=== PATIENT | male | born 1940 | race African-American/Black ===

== ENCOUNTER 2019-05-14 17:07 | Inpatient (IN) | payer OTHER, MEDICAID ==
[~2019-05-14] VITALS: Ht 175.3 cm; Wt 83.9 kg
[2019-05-14 17:07] VITALS: BP_SYST 137
--- NOTE | 2019-05-14 17:07 | NUR ---
BROUGHT IN BY [facility]LS [facility]ANCE AND PLACED IN HALLWAY FOR TRIAGE. AWAITING HOSPITAL BED. ALL VSS. PT DENIES PAIN OR DISCOMFORT
[2019-05-14] MEDS ORDERED: NACL 0.9% 1,000 ML IV ONE (17:15)
--- NOTE | 2019-05-14 17:45 | NUR ---
MOVED TO ROOM #4 FOR CLOSER MONITORING. REPORT GIVEN TO BRIANNA
[2019-05-14 17:51] LABS: BASOPHILS % (AUTO) 0.4 % (0.0-2.0); EOSINOPHILS % (AUTO) 0.2 % (0.0-4.0); HEMATOCRIT 38.2 % (36-54); HEMOGLOBIN 12.8 g/dL (14.0-18.0); LYMPHOCYTES # (AUTO) 1.6 K/uL (1.0-5.5); LYMPHOCYTES % (AUTO) 26.9 % (20.5-51.5); MEAN CORPUSCULAR HEMOGLOBIN 33 pg (27-31); MEAN CORPUSCULAR HGB CONC 34 % (32-36); MEAN CORPUSCULAR VOLUME 98 fL (79.0-98.0); MONOCYTES # (AUTO) 0.6 K/uL (0.0-1.0); MONOCYTES % (AUTO) 10.4 % (1.7-9.3); NEUTROPHILS # (AUTO) 3.6 K/uL (1.8-7.7); NEUTROPHILS % (AUTO) 62.1 % (40.0-70.0); PLATELET COUNT (AUTO) 215 K/uL (130-430); RED BLOOD CELL COUNT(AUTO) 3.92 MIL/uL (4.2-6.2); RED CELL DISTRIBUTION WIDTH 13.7 % (9.0-15.0); WHITE BLOOD COUNT (AUTO) 5.8 K/uL (4.8-10.8)
--- NOTE | 2019-05-14 18:00 | NUR ---
PT HAS NO ACUTE DISTRESS NOTED AT THIS TIME.
[2019-05-14 18:08] LABS: PROTHROMBIN TIME 10.4 SECS (9.5-12.5)
[2019-05-14 18:10] LABS: ANION GAP 1 (5-15); CALCIUM 8.5 mg/dL (8.4-11.0); CHLORIDE 108 mmol/L (98-107); CREATININE 0.77 mg/dL (0.55-1.30); GLUCOSE 92 mg/dL (70-99); POTASSIUM 4.1 mmol/L (3.5-5.1); SODIUM SERUM 142 mmol/L (136-145); UREA NITROGEN, BLOOD 15 mg/dL (8-21)
--- NOTE | 2019-05-14 18:15 | NUR ---
PT PROVIDE URINE SPECIMEN.
[2019-05-14 18:17] LABS: ALANINE AMINOTRANSFERASE 25 U/L (12-78); ALBUMIN 3.2 g/dL (3.4-4.8); ASPARTATE AMINOTRANSFERASE 22 U/L (10-37); TOTAL BILIRUBIN 0.3 mg/dL (0.0-1.0)
--- NOTE | 2019-05-14 18:30 | NUR ---
# 20 gauge angiocath placed to LFA. Use of asceptic technique. Opsite placed over site. Blood return noted. Flushed with 10 cc of normal saline. No evidence of infiltration noted. Patient tolerated well.
--- NOTE | 2019-05-14 19:00 | NUR ---
Patient will be admitted to care of DR. BAILEY. Admitted to TELEMETRY unit. Will go to room 121A. Summary report printed. Report will be given at bedside.
--- NOTE | 2019-05-14 19:30 | NUR ---
Recieved Pt from jason RN. Pt stable, but confused. IVF infusing, IV site C/D/I. Orders to transfer to Telemetry in. Pt to be transferred.
--- NOTE | 2019-05-14 19:56 | NUR ---
ADMISSION: The patient, MILI RIVAS, 79 y/o, M admitted by CURTIS BAILEY MD, to room 121 A , with the diagnosis of EPISODES OF HYPOTENSION ,was given written information regarding hospital policies, unit procedures and contact persons.
[2019-05-14 20:06] LABS: BILIRUBIN,URINE NEGATIVE (NEGATIVE); BLOOD, URINE NEGATIVE (NEGATIVE); CLARITY/URINE CLEAR (CLEAR); COLOR,URINE YELLOW (YELLOW); GLUCOSE,URINE NEGATIVE (NEGATIVE); KETONES,URINE NEGATIVE (NEGATIVE); LEUKOCYTE ESTERASE ,URINE NEGATIVE (NEGATIVE); NITRITE, URINE NEGATIVE (NEGATIVE); PROTEIN URINE NEGATIVE (NEGATIVE); UROBILINOGEN,URINE 0.2 (0.2-1.0)
[2019-05-14 20:34] VITALS: BP_SYST 149
--- NOTE | 2019-05-14 20:34 | NUR ---
Initial RN notes Pt AAOx2, VSS, afebrile. SR on the monitor. Pt oriented to name and only and thinks he is in [facility] Cust[facility]. Pt is R. eye blind. IVF NS infusing L. AC 20 no s/s infiltration. Oriented pt to surrounding. Call light within reach. Bed low, locked, siderails up, bed alarm on. Belonging list down. To monitor.
--- NOTE | 2019-05-14 21:55 | NUR ---
MRSA nares collected and sent to lab.
[2019-05-14] MEDS ORDERED: PRO40 PO (23:05)
[2019-05-14] MEDS ORDERED: MOM PO (23:05)
[2019-05-14] MEDS ORDERED: SER100 PO (23:05)
[2019-05-14] MEDS ORDERED: DICL75TA5 PO (23:05)
[2019-05-14] MEDS ORDERED: DICL50TA9 PO (23:05)
[2019-05-14] MEDS ORDERED: ACET325T53 PO (23:05)
[2019-05-14] MEDS ORDERED: BISA10SU61 RC (23:05)
[2019-05-14] MEDS ORDERED: MEMA10TA21 PO (23:05)
[2019-05-14] MEDS ORDERED: FLEETMO RC (23:05)
[2019-05-14] MEDS ORDERED: MULT1CAP34 (23:05)
--- NOTE | 2019-05-14 23:30 | NUR ---
Agitated Pt confused and getting agitated, pulled out IV. TRAVEL COUNSELOR at bedside. Paged Dr. Vasquez. Awaiting callback.
--- NOTE | 2019-05-14 23:43 | NUR ---
called back Received Dr. Vasquez callback and order received for Ativan 1mg PO as needed. Will carry out.
[2019-05-14] MEDS ORDERED: LORazepam 1 MG TABLET PO PRN (23:45)
--- NOTE | 2019-05-15 00:04 | NUR ---
Ativan Pt agitated, pulled off IV catheter and monitor. Ativan 1mg PO given as needed, crushed with pudding. Pt allowed this nurse to check his vitals, VSS. But pt refused to have monitor on. Fall precaution in place. Will continue to monitor pt.
[2019-05-15 00:10] VITALS: BP_SYST 135
--- NOTE | 2019-05-15 02:05 | NUR ---
Rounds Pt asleep. No s/s distress noted. Tele box on. Safety measures maintained. Pt placed near nursing station to be monitored closely.
--- NOTE | 2019-05-15 04:15 | NUR ---
Rounds Pt awake, agitated on and off trying to get out of bed and taking off tele box. Call light within reach. Bed low, locked, siderails up, alarm on. Will continue to monitor closely.
--- NOTE | 2019-05-15 04:38 | NUR ---
CONSULT Called [facility] exchange for morning consult [phone] Spoke to [employer] Addendum: 05/15/19 at 7081 by Rola Dumont AR/ [phone] Spoke to Christianne @ [phone]
--- NOTE | 2019-05-15 04:43 | NUR ---
CONSULT Called Dr. Jain's exchange [phone] Spoke to [employer]
--- NOTE | 2019-05-15 06:54 | NUR ---
Nutrition Update Bipin Scale 16 noted. Pt admitted for Episode of Hypotension Diet: 2gm Na BMI: 27.3 kg/m2 RD to follow per nutrition care standards.
--- NOTE | 2019-05-15 07:00 | NUR ---
Closing notes/IV re-start Pt asleep, no s/s agitation at this time. IV restarted R. FA 22G good blood return. Pt tolerated well. Safety maintained. Bed low, locked, siderails up, bed alarm on. All needs met throughout the night. To endorse to AM nurse.
[2019-05-15 07:47] LABS: BASOPHILS % (AUTO) 0.4 % (0.0-2.0); EOSINOPHILS % (AUTO) 0.2 % (0.0-4.0); HEMATOCRIT 37.2 % (36-54); HEMOGLOBIN 12.4 g/dL (14.0-18.0); LYMPHOCYTES # (AUTO) 1.6 K/uL (1.0-5.5); LYMPHOCYTES % (AUTO) 23.2 % (20.5-51.5); MEAN CORPUSCULAR HEMOGLOBIN 33 pg (27-31); MEAN CORPUSCULAR HGB CONC 33 % (32-36); MEAN CORPUSCULAR VOLUME 98 fL (79.0-98.0); MONOCYTES # (AUTO) 0.8 K/uL (0.0-1.0); MONOCYTES % (AUTO) 12.2 % (1.7-9.3); NEUTROPHILS # (AUTO) 4.4 K/uL (1.8-7.7); PLATELET COUNT (AUTO) 217 K/uL (130-430); RED BLOOD CELL COUNT(AUTO) 3.81 MIL/uL (4.2-6.2); RED CELL DISTRIBUTION WIDTH 13.4 % (9.0-15.0); WHITE BLOOD COUNT (AUTO) 6.8 K/uL (4.8-10.8)
--- NOTE | 2019-05-15 07:50 | NUR ---
OPENING NOTE PATIENT AWAKE IN BED. A/OX2. CONFUSED. NO S/SX PAIN NOTED. ROOM AIR. NO ACUTE DISTRESS. NO SOB. RESPIRATION EVEN AND UNLABORED. SKIN WARM AND DRY TO TOUCH. IV TO RFA INTACT AND PATENT, SL; NO REDNESS/INFILTRATION NOTED. ALL NEEDS MET. REPOSITIONED FOR BREAKFAST. BED IN LOW AND LOCKED POSITION. SIDERAIL UPX3. BED ALARM ON. CALL LIGHT IN REACH. ROOM NEAR NURSES STATION.
[2019-05-15 08:00] VITALS: BP_SYST 118
[2019-05-15 08:09] LABS: ALANINE AMINOTRANSFERASE 24 U/L (12-78); ANION GAP 5 (5-15); ASPARTATE AMINOTRANSFERASE 24 U/L (10-37); CALCIUM 8.4 mg/dL (8.4-11.0); CHLORIDE 107 mmol/L (98-107); CREATININE 0.72 mg/dL (0.55-1.30); GLUCOSE 81 mg/dL (70-99); SODIUM SERUM 143 mmol/L (136-145); THYROID STIMULATING HORMONE 3.04 uIu/mL (0.36-3.74); TOTAL BILIRUBIN 0.4 mg/dL (0.0-1.0); UREA NITROGEN, BLOOD 13 mg/dL (8-21)
[2019-05-15 08:23] LABS: CHOLESTEROL 149 mg/dL (<200); HDL CHOLESTEROL 58 mg/dL (>45); LDL CHOLESTEROL 86 mg/dL (<100); TRIGLYCERIDES 33 mg/dL (30-150)
--- NOTE | 2019-05-15 09:55 | NUR ---
NOTE ASSISTED PATIENT TO BATHROOM WITH SLOW GAIT. VOIDED WITH NO DIFFICULTY. ALL NEEDS MET. CONT TO MONITOR
--- NOTE | 2019-05-15 11:00 | NUR ---
NOTE PATIENT REQUESTED FOR COFFEE. ALL NEEDS MET. CONT TO MONITOR. CALL LIGHT IN REACH
[2019-05-15 12:00] VITALS: BP_SYST 130
--- NOTE | 2019-05-15 12:54 | NUR ---
NOTE PATIENT ATE 100% LUNCH WITH NO DIFFICULTY. NOW RESTING IN BED WATCHING TV. ALL NEEDS MET. CONT TO MONITOR
--- NOTE | 2019-05-15 13:20 | NUR ---
SEEN AND EXAMINED BY AT BEDSIDE. MD WANTS TO KEEP PATIENT ON TELE. PATIENT RESTING IN BED AT THIS TIME. NO S/SX PAIN. CONT TO MONITOR
--- NOTE | 2019-05-15 14:20 | NUR ---
NOTE PATIENT IS BEING NONCOMPLIANT. PATIENT ATTEMPTED TO REMOVE TELE BOX THEN PULLED OUT IV LINE TO RFA. GAUZE AND PRESSURE APPLIED TO SITE. NO BLEEDING AT THIS TIME. REORIENTED PATIENT AND EXPLAINED TO PATIENT PURPOSE OF IV. ALL NEEDS MET. CONT TO MONITOR WILL ATTEMPT TO REINSERT IV WHEN PATIENT ALLOWS
--- NOTE | 2019-05-15 15:23 | NUR ---
SEEN AND EXAMINED BY AT BEDSIDE. PATIENT CONTINUES TO REFUSE IV INSERT. PATIENT STATES THAT HE "DONT NEED IT AND DONT WANT IT". RISKS EXPLAINED AND PATIENT CONTINUE TO REFUSE
--- NOTE | 2019-05-15 15:58 | NUR ---
2D ECHO PATIENT REFUSED 2D ECHO. ATTEMPTED WITH TECH TO EXPLAIN PROCEDURE. PATIENT CONTINUE TO REFUSE. TECH WILL ATTEMPT AGAIN TOMORROW Addendum: 05/15/19 at 1601 by Kathryn Fuentes RN PATIENT CONTINUES TO BE NONCOMPLIANT AND REMOVING TELE BOX. CONT TO EXPLAIN TO PATIENT RISK/BENEFITS AND PATIENT REFUSE TO PUT BACK ON. PATIENT ALSO CONT TO REFUSE IV INSERT AT THIS TIME
[2019-05-15 16:00] VITALS: BP_SYST 124
--- NOTE | 2019-05-15 16:29 | NUR ---
EKG PATIENT REFUSED EKG. EXPLAINED TO PATIENT WITH RT WHAT PROCEDURE IS AND WHAT ITS FOR. PATIENT CONTINUES TO REFUSE EKG. WILL NOTIFY
--- NOTE | 2019-05-15 18:30 | NUR ---
CLOSING NOTE PATIENT FINISHING UP DINNER. NO C/O PAIN. ROOM AIR. NO ACUTE DISTRESS. NO SOB. RESP EVEN AND UNLABORED. SKIN WARM AND DRY TO TOUCH. PATIENT CONT TO REFUSE IV INSERTION. PATIENT ALSO REFUSES TELE BOX FOR MONITORING. ALL RISKS EXPLAINED TO PATIENT AND PATIENT CONT TO BE NONCOMPLIANT AND REFUSE IV AND TELE MONITORING. BED IN LOW AND LOCKED POSITION. SIDERAIL UPX3. BED ALARM ON. ROOM NEAR NURSES STATION. CONT TO MONITOR. WILL ENDORSE TO ONCOMING SHIFT.
--- NOTE | 2019-05-15 19:05 | NUR ---
OPENING NOTE Bedside report received from dayshift nurse. Patient received sitting up in bed, drinking coffee. No s/s of acute distress noted, patient denies any pain. Breathing even and unlabored. Bed alarm is off per patient's refusal. Patient educated on its purpose and benefits. Patient educated on proper use of call light, patient verbalized understanding and demonstrated back proper use. Call light is with patient. Bed is locked and at lowest position. Will continue to monitor.
--- NOTE | 2019-05-15 19:05 | NUR ---
REFUSES TELE BOX Patient refuses to have tele box attached. Patient educated on its purpose and benefits, but patient still refuses. Will continue to encourage throughout shift.
[2019-05-15 20:00] VITALS: BP_SYST 138; BP_SYST 154
--- NOTE | 2019-05-15 21:00 | NUR ---
ROUNDS Patient in bed, awake, resting. No signs of discomfort noted. Chest rise and fall even bilaterally. Call light with patient. Bed is locked and at lowest position. Will continue to monitor.
--- NOTE | 2019-05-15 23:00 | NUR ---
ROUNDS Patient in bed sleeping. No s/s of acute distress noted. Breathing even and unlabored. All needs met. Call light with patient. Will continue to monitor.
[2019-05-16] VITALS: BP_SYST 107
--- NOTE | 2019-05-16 01:00 | NUR ---
ROUNDS Patient in bed sleeping. No signs of discomfort noted. Chest rise and fall even bilaterally. Call light with patient. Will continue to monitor.
--- NOTE | 2019-05-16 03:00 | NUR ---
ROUNDS Patient in bed, asleep. No s/s of acute distress noted. Breathing even and unlabored. Call light with patient. Will continue to monitor.
--- NOTE | 2019-05-16 05:00 | NUR ---
ROUNDS Patient in bed, awake. No signs of discomfort noted. No complaints of pain or discomfort. Chest rise and fall even bilaterally. Call light with patient. Will continue to monitor.
--- NOTE | 2019-05-16 06:19 | NUR ---
CLOSING NOTES Patient in bed, awake, sitting. No s/s of acute distress noted. Patient denies any pain or discomfort. Breathing even and unlabored. HOB raised. All needs met throughout shift. Fall and safety precautions maintained throughout shift. Will continue to monitor until patient care is endorsed to oncoming dayshift nurse.
[2019-05-16 06:40] LABS: BASOPHILS % (AUTO) 0.5 % (0.0-2.0); EOSINOPHILS % (AUTO) 0.1 % (0.0-4.0); HEMATOCRIT 42.1 % (36-54); HEMOGLOBIN 14.1 g/dL (14.0-18.0); LYMPHOCYTES # (AUTO) 2.8 K/uL (1.0-5.5); LYMPHOCYTES % (AUTO) 32.5 % (20.5-51.5); MEAN CORPUSCULAR HEMOGLOBIN 33 pg (27-31); MEAN CORPUSCULAR HGB CONC 34 % (32-36); MEAN CORPUSCULAR VOLUME 98 fL (79.0-98.0); MONOCYTES # (AUTO) 0.8 K/uL (0.0-1.0); MONOCYTES % (AUTO) 8.9 % (1.7-9.3); NEUTROPHILS # (AUTO) 4.9 K/uL (1.8-7.7); PLATELET COUNT (AUTO) 223 K/uL (130-430); RED BLOOD CELL COUNT(AUTO) 4.31 MIL/uL (4.2-6.2); RED CELL DISTRIBUTION WIDTH 13.5 % (9.0-15.0)
[2019-05-16 06:45] LABS: ANION GAP 8 (5-15); CALCIUM 9.1 mg/dL (8.4-11.0); CHLORIDE 105 mmol/L (98-107); CREATININE 0.69 mg/dL (0.55-1.30); GLUCOSE 94 mg/dL (70-99); POTASSIUM 4.7 mmol/L (3.5-5.1); SODIUM SERUM 140 mmol/L (136-145); UREA NITROGEN, BLOOD 14 mg/dL (8-21)
--- NOTE | 2019-05-16 07:25 | NUR ---
Patient is seen walking around the room, confused. No complaints of dizziness at this time. Patient is reinforced instrumentation engineering technician light and safety. Will monitor closely for safety.
[2019-05-16 07:35] LABS: WHITE BLOOD COUNT (AUTO) 8.5 K/uL (4.8-10.8)
[2019-05-16 08:00] VITALS: BP_SYST 122
--- NOTE | 2019-05-16 09:42 | NUR ---
Patient is seen sitting on the side of the bed, no signs of distress noted.
--- NOTE | 2019-05-16 11:28 | NUR ---
Paged DR. Vasquez for orders.
--- NOTE | 2019-05-16 11:38 | NUR ---
Patient had a large BM.
[2019-05-16] MEDS ORDERED: MILK OF MAGNESIA 30 ML UDC PO PRN (11:45)
[2019-05-16] MEDS ORDERED: BISACODYL 10 MG/SUPPOSITORY RC PRN (11:45)
[2019-05-16 12:00] VITALS: BP_SYST 113
--- NOTE | 2019-05-16 13:00 | NUR ---
PATIENT ATE LUNCH. TOLERATED WITHOUT DISTRESS.
--- NOTE | 2019-05-16 15:24 | NUR ---
PATIENT'S CALLS IN, AND SHE IS UPDATED WITH PATIENT'S CURRENT STATUS.
[2019-05-16 16:00] VITALS: BP_SYST 118
--- NOTE | 2019-05-16 17:45 | NUR ---
PATIENT IS EATING DINNER AT THIS TIME. NO SIGNS OF DISTRESS NOTED.
--- NOTE | 2019-05-16 19:05 | NUR ---
OPENING NOTES Bedside report received from dayshift nurse. Patient received sitting outside, right in front of room. No s/s of acute distress noted. Breathing even and unlabored. Patient is right in front of the nursing station. Patient denies pain. Patient refuses to lay back down in bed, will continue to encourage throughout shift. Will continue to monitor.
--- NOTE | 2019-05-16 19:17 | NUR ---
Victor Hugo any pain or discomfort. Breathing even and unlabored. HOB raised. Will continue to monitor, with Fall and safety precautions maintained.
[2019-05-16 20:00] VITALS: BP_SYST 120
[2019-05-16] MEDS: QUEtiapine FUMARATE 25 MG TABLET PO SCH (20:10)
--- NOTE | 2019-05-16 21:00 | NUR ---
ROUNDS/REFUSED TELEBOX Patient in bed at this time, resting. No signs of discomfort noted. Chest rise and fall even bilaterally. Patient refuses to have telebox attached at this time. Patient educated on its purpose and benefits. Will continue to encourage throughout shift. Call light with patient. Will continue to monitor.
--- NOTE | 2019-05-16 23:00 | NUR ---
ROUNDS Patient in bed sleeping at this time. No s/s of acute distress noted. Breathing even and unlabored. Call light with patient. Bed alarm on. Will continue to monitor.
[2019-05-17 00:16] VITALS: BP_SYST 131
--- NOTE | 2019-05-17 01:00 | NUR ---
ROUNDS Patient in bed sleeping comfortably at this time. No signs of discomfort noted. Chest rise and fall even bilaterally. Call light with patient. Bed alarm on. Will continue to monitor.
--- NOTE | 2019-05-17 03:00 | NUR ---
ROUNDS Patient in bed sleeping. No s/s of acute distress noted. Breathing even and unlabored. Call light with patient. Bed alarm on. Will continue to monitor.
--- NOTE | 2019-05-17 05:00 | NUR ---
ROUNDS Patient in bed sleeping. No signs of discomfort noted. Chest rise and fall even bilaterally. Call light with patient. Bed alarm on. Will continue to monitor.
--- NOTE | 2019-05-17 06:19 | NUR ---
CLOSING NOTES Patient in bed sleeping at this time. No s/s of acute distress noted. Breathing even and unlabored. All needs met throughout shift. Fall and safety precautions maintained throughout shift. Will continue to monitor until patient care is endorsed to oncoming dayshift nurse.
--- NOTE | 2019-05-17 07:45 | NUR ---
Initial Note Patient resting in bed, on room air, tolerating well. No acute distress noted. Breathing even and un-labored. Patient educated on use of monitor car operator, patient refusing to have monitor car operator in place. Educated patient on purpose for IV access, patient refusing IV catheter placement. Dr. Vasquez aware. Call light within reach, bed in low and locked position with bed alarm on.
[2019-05-17 08:00] VITALS: BP_SYST 129
[2019-05-17] MEDS: QUEtiapine FUMARATE 25 MG TABLET PO SCH ×3 (08:05→21:27)
--- NOTE | 2019-05-17 09:45 | NUR ---
RN ROUNDS Patient resting. No acute distress noted. Breathing even and unlabored.
--- NOTE | 2019-05-17 11:55 | NUR ---
RN ROUNDS Patient sitting at edge of bed eating lunch. Denies any dizziness, or sob.
[2019-05-17 13:15] VITALS: BP_SYST 101
--- NOTE | 2019-05-17 13:24 | NUR ---
GUNNER GUZMÁN Assisted patient to bedside commode. patient had small bowel movement. Cleaned and assisted patient back into bed, repositioned for comfort. Refused hospital gown, patient wearing night gown from home. patient tolerated well. Addendum: 05/17/19 at 1327 by Sarah De RN DISREGARD, WRONG PATIENT ENTRY.
--- NOTE | 2019-05-17 13:24 | NUR ---
RN ROUND Patient standing up. Reoriented patient to sit back down in bed. Patient cooperative, sitting at edge of bed. No acute distress noted.
[2019-05-17 16:30] VITALS: BP_SYST 108
--- NOTE | 2019-05-17 16:30 | NUR ---
RN ROUNDS Patient sitting in chair. No acute distress noted. Breathing even and un-labored.
--- NOTE | 2019-05-17 19:31 | NUR ---
CLOSING NOTE Bedside SBAR report given to receiving RN. Patient sitting in bed. No acute distress, breathing even and un-labored. Pt still refusing telemonitor and IV access. Call light in reach, bed in low and locked position, bed alarm on. Care endorsed to overnight associate RN.
--- NOTE | 2019-05-17 20:11 | NUR ---
patient received with no iv access and Dr Vasquez is aware. ambulating to the hallway
--- NOTE | 2019-05-17 22:07 | NUR ---
patient refused medications. even with explanation.
[2019-05-18] MEDS: QUEtiapine FUMARATE 25 MG TABLET PO SCH ×2 (01:05→08:37)
[2019-05-18 04:00] VITALS: BP_SYST 117
--- NOTE | 2019-05-18 06:28 | NUR ---
TRANSFER OF CARE/END NOTE RECEIVED REPORT FROM GUNNER MARS. GUNNER TALLEY LEFT EARLY. PATIENT IS AWAKE AND ALERT. NO COMPLAINTS AT THIS TIME. AMBULATES WITH STEADY GAIT. CARE AND MONITORING PROVIDED SINCE TRANSFER OF CARE. CALL LIGHT WITHIN REACH. BED ALARM OFF AT THIS TIME BUT ADVISED TO CALL. KEPT WARM AND COMFORTABLE.
--- NOTE | 2019-05-18 07:30 | NUR ---
OPENING NOTES, SEEN PATIENT IN ROOM , PT STANDING. PT BELLIGERENT AT THIS TIME. SENT THIS RN OUT OF THE ROOM. WILL CHECK PT AGAIN.
[2019-05-18 08:00] VITALS: BP_SYST 116
--- NOTE | 2019-05-18 09:59 | NUR ---
PATIENT HAD CALMED DOWN AFTER GIVEN COFFEE BY OUTSIDE SALES ASSOCIATE, AGREED TO HAVE HIS VITALS AND TO TAKE HIS AM MEDS. PT WANTED TO HAVE SUPPOSITORY , PT HAD A BIG BM EARLIER. ALSO HAD BM YESTERDAY, EXPLAINED TO PATIENT THAT HE DOES NOT NEED SUPPOSITORY RIGHT NOW. PT COMPLAINED OF LEFT SHOULDER PAIN, NO BRUISING NOTED ON THE SHOULDER BUT C/O OF PAIN WHEN THE AREA WAS TOUCHED. WILL INFORM MD.
[2019-05-18] MEDS ORDERED: QUEtiapine FUMARATE 25 MG TABLET PO ONE (11:00)
--- NOTE | 2019-05-18 12:00 | NUR ---
PT SITTING ON EOB, EATING LUNCH. NO S/S OF PAIN, NO RESP DISTRESS. VITALS WNL. NO BRADYCARDIA NO HYPOTENSION.
[2019-05-18 12:44] VITALS: BP_SYST 125
[2019-05-18 12:45] VITALS: BP_SYST 125
[2019-05-18 12:50] VITALS: BP_SYST 130
--- NOTE | 2019-05-18 12:55 | NUR ---
Discharge Planning: DCP faxed pt referral to [facility] (f [phone] p [phone]) DCP to follow up Addendum: 05/18/19 at 1527 by Eileen Caruso DP Patient accepted to [facility] (f [phone] p [phone]) RM 52B, [facility] ([phone]) 6:00pm P/U patient packet taken to nurse station.
--- NOTE | 2019-05-18 16:24 | NUR ---
SBAR REPORT GIVEN TO DEB AGUILAR OF [facility].
--- NOTE | 2019-05-18 16:25 | NUR ---
PT CALMLY SITTING IN FRONT OF THE NURSING STATION.
[2019-05-18 16:50] VITALS: BP_SYST 121
--- NOTE | 2019-05-18 18:00 | NUR ---
PT SITTING ON EOB, EATING DINNER. PT HAS BEEN CALM AFTER THE INCIDENT THIS AM. 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
--- NOTE | 2019-05-18 19:21 | NUR ---
D/C Patient Patient given medication reconciliation form and D/C instructions. Exit Care provided. Patient verbalized understanding. MD discussed with patient the results and treatment provided. Ambulatory with steady gait for discharge to home. Patient in stable condition, ID band removed. IV catheter removed, intact and dressing applied, no active bleeding. No Rx given. Patient educated on pain management. All belongings sent with patient.
[2019-05-18] MEDS ORDERED: QUEtiapine FUMARATE 25 MG TABLET PO SCH (21:00)
== END 2019-05-18 19:30 | DRG 315 ==
LOC: SED 17:07 → STU 19:17
PROVIDERS: ADMIT Internal Medicine; ATTEND Internal Medicine
DX: I95.9 Hypotension, unspecified (principal); G93.40 Encephalopathy, unspecified; R00.1 Bradycardia, unspecified; F03.90 Unspecified dementia, unspecified severity, without behavioral disturbance, psychotic disturbance, mood disturbance, and anxiety; H54.61 Unqualified visual loss, right eye, normal vision left eye; F43.10 Post-traumatic stress disorder, unspecified; F20.9 Schizophrenia, unspecified; E87.6 Hypokalemia; K44.9 Diaphragmatic hernia without obstruction or gangrene; M10.9 Gout, unspecified; M19.90 Unspecified osteoarthritis, unspecified site; I10 Essential (primary) hypertension; Z79.899 Other long term (current) drug therapy; Z88.5 Allergy status to narcotic agent
CPT/HCPCS: 36415; 71045; 80048; 80053; 80061; 81003; 83605; 84443-TC; 84484; 85025; 85610-TC; 85730-TC; 87040-TC; 87081; 87086; 93005; 99285; G0378; J7030

== ENCOUNTER 2019-08-21 17:45 | Emergency (ER) | payer OTHER, MEDICAID ==
[~2019-08-21] VITALS: Ht 162.6 cm; Wt 61.7 kg
[~2019-08-21 17:45] MED LIST: ACET325T53 PO; BISA10SU61 RC; DICL50TA9 PO; DICL75TA5 PO; FLEETMO RC; MEMA10TA21 PO; MOM PO; MULT1CAP34; PRO40 PO; SER100 PO
[2019-08-21 18:00] VITALS: BP_SYST 134
--- NOTE | 2019-08-21 18:20 | NUR ---
urine collected and sent to lab
--- NOTE | 2019-08-21 18:30 | NUR ---
Patient to ER bed 6 to gown for evaluation. Side rails up.
[2019-08-21 18:35] LABS: BILIRUBIN,URINE NEGATIVE (NEGATIVE); BLOOD, URINE NEGATIVE (NEGATIVE); CLARITY/URINE CLEAR (CLEAR); COLOR,URINE YELLOW (YELLOW); GLUCOSE,URINE NEGATIVE (NEGATIVE); KETONES,URINE NEGATIVE (NEGATIVE); LEUKOCYTE ESTERASE ,URINE NEGATIVE (NEGATIVE); NITRITE, URINE NEGATIVE (NEGATIVE); PH,URINE 5.5 (5.0-8.0); PROTEIN URINE NEGATIVE (NEGATIVE); UROBILINOGEN,URINE 0.2 (0.2-1.0)
[2019-08-21 18:41] LABS: BARBITURATE, URINE NEGATIVE (NEG <=200); BENZODIAZEPINE, URINE POSITIVE (NEG <=150); CANNABINOID, URINE NEGATIVE (NEG <=50); COCAINE, URINE NEGATIVE (NEG <=150); METHAMPHETAMINES SCREEN,URINE NEGATIVE (NEG <=500); OPIATE, URINE NEGATIVE (NEG <=100); PHENCYCLIDINE SCREEN,URINE NEGATIVE (NEG <=25); UR TRICYCLIC ANTIDEPRESSANTS NEGATIVE (NEG <=300); URINE AMPHETAMINE NEGATIVE (NEG <=500); URINE METHADONE NEGATIVE (NEG <=200); URINE OXYCODONE SCREEN NEGATIVE (NEG <=100); URINE PROPOXYPHENE SCREEN NEGATIVE (NEG <=300)
[2019-08-21 18:54] LABS: BASOPHILS % (AUTO) 0.6 % (0.0-2.0); EOSINOPHILS % (AUTO) 0.2 % (0.0-4.0); HEMATOCRIT 44.3 % (36-54); HEMOGLOBIN 14.8 g/dL (14.0-18.0); LYMPHOCYTES % (AUTO) 23.1 % (20.5-51.5); MEAN CORPUSCULAR HEMOGLOBIN 32 pg (27-31); MEAN CORPUSCULAR HGB CONC 33 % (32-36); MEAN CORPUSCULAR VOLUME 97 fL (79.0-98.0); MONOCYTES # (AUTO) 0.5 K/uL (0.0-1.0); MONOCYTES % (AUTO) 12.3 % (1.7-9.3); NEUTROPHILS # (AUTO) 2.8 K/uL (1.8-7.7); NEUTROPHILS % (AUTO) 63.8 % (40.0-70.0); PLATELET COUNT (AUTO) 187 K/uL (130-430); RED BLOOD CELL COUNT(AUTO) 4.56 MIL/uL (4.2-6.2); RED CELL DISTRIBUTION WIDTH 13.6 % (9.0-15.0); WHITE BLOOD COUNT (AUTO) 4.4 K/uL (4.8-10.8)
--- NOTE | 2019-08-21 18:54 | NUR ---
pt arrives from [facility] for med clearance. Pt is AAOx1 only and is behaving combatively towards the staff. Pt will be going to rm 50 at [facility] under the care of Dr. Jain
--- NOTE | 2019-08-21 18:59 | NUR ---
MRSA collected and sent to the lab
[2019-08-21 19:04] LABS: ANION GAP 5 (5-15); CALCIUM 8.6 mg/dL (8.4-11.0); CHLORIDE 107 mmol/L (98-107); CREATININE 0.81 mg/dL (0.55-1.30); GLUCOSE 92 mg/dL (70-99); POTASSIUM 3.9 mmol/L (3.5-5.1); SODIUM SERUM 141 mmol/L (136-145); UREA NITROGEN, BLOOD 20 mg/dL (8-21)
[2019-08-21 19:10] LABS: ALANINE AMINOTRANSFERASE 31 U/L (12-78); ALBUMIN 3.5 g/dL (3.4-4.8); ASPARTATE AMINOTRANSFERASE 29 U/L (10-37); CHOLESTEROL 167 mg/dL (<200); HDL CHOLESTEROL 70 mg/dL (>45); LDL CHOLESTEROL 83 mg/dL (<100); TOTAL BILIRUBIN 0.5 mg/dL (0.0-1.0); TRIGLYCERIDES 77 mg/dL (30-150)
[2019-08-21 19:11] LABS: ACETAMINOPHEN < 1 ug/mL (1-30); ALCOHOL, BLOOD < 3 mg/dL (<10)
--- NOTE | 2019-08-21 19:14 | NUR ---
report given to Cheryl MARTINO. Pt is being comabtive towards the staff. Security w/ the pt at the bedside.
[2019-08-21] MEDS ORDERED: ONDANSETRON 4 MG ODT TAB PO ONE (19:45)
--- NOTE | 2019-08-21 19:55 | NUR ---
Pt vomited clear liquid. Dr. Campbell notified. Recieved orders for zofran. Will continue to monitor.
--- NOTE | 2019-08-21 19:59 | NUR ---
Pt medicated. Pt tolerated well.
--- NOTE | 2019-08-21 20:26 | NUR ---
[facility] here to curing pickling packer pt to take Rayna Barrera under Dr. Jain.
--- NOTE | 2019-08-21 20:38 | NUR ---
Report called to Suzanne at [facility].
--- NOTE | 2019-08-21 20:39 | NUR ---
Patient to be transferred to [facility]. Is being transferred due to higher level of care. Receiving facility has accepting physician and available space. ER physician has signed transfer form. Patient or responsible green party has agreed to transfer and signed form. Patient belongings inventoried and will be sent with patient. Copy of nursing notes, lab reports, EKG, Physicians Orders and X-rays to be sent with patient. Report called to Suzanne at receiving facility. Receiving physician is Dr. Jain. [facility] ambulance service has been called for transfer.
[2019-08-21 20:43] VITALS: BP_SYST 157
[2019-08-22 20:28] LABS: CHOLESTEROL 165 mg/dL (<200); HDL CHOLESTEROL 66 mg/dL (>45); LDL CHOLESTEROL 82 mg/dL (<100); TRIGLYCERIDES 86 mg/dL (30-150)
== END 2019-08-21 20:39 ==
LOC: SED 17:45
DX: R45.6 Violent behavior (principal); F03.90 Unspecified dementia, unspecified severity, without behavioral disturbance, psychotic disturbance, mood disturbance, and anxiety; M19.90 Unspecified osteoarthritis, unspecified site; H54.40 Blindness, one eye, unspecified eye; Z88.5 Allergy status to narcotic agent; Z88.8 Allergy status to other drugs, medicaments and biological substances; Z79.899 Other long term (current) drug therapy
CPT/HCPCS: 36415; 80053; 80061; 80307; 81003; 82962; 83036; 85025; 87081; 93005; 99285; G0480; G0481; G0482; Q0162